=== PATIENT | male | born 1975 | race Hispanic/Latino ===

== ENCOUNTER → 2018-06-22 | Outpatient (CLI) | payer BC ==
--- NOTE | 2018-06-22 14:11 | Diagnostic Imaging Report ---
EXAMINATION: Scrotal ultrasound CLINICAL INDICATION: Lower abdominal pain, right testicular pain. COMPARISON: None.. TECHNIQUE: Grayscale and color Doppler evaluation of the scrotum was performed in transverse and longitudinal planes. FINDINGS: The right testicle measures 4.5 x 2.1 x 3.3 cm. There are no masses or calcifications.. The right epididymis measures 1.0 x 1.0 x 1.0 cm. No nodules or masses.. Trace right hydrocele. A right varicocele is identified There is normal arterial and venous flow to the right testicle, without evidence of torsion. The left testicle measures 3.9 x 2.1 x 3.7 cm. There are no masses or calcifications.. The left epididymis measures 0.7 x 0.8 x 0.8 cm. No nodules or masses.. Trace left hydrocele. No varicocele. There is normal arterial and venous flow to the left testicle without evidence of torsion. The scrotum has a normal appearance, without focal lesions. No skin thickening. Normal-sized, normal-appearing 2.3 x 0.6 x 1.2 cm right inguinal lymph node is identified, with normal fatty hilum. Impression: 1. Normal bilateral testicular size and echogenicity. Normal arterial venous flow, without evidence of torsion. No focal lesions. 2. Right varicocele. 3. Trace bilateral hydroceles. Signed by: Dr. Edilberto Gar M.D. on 06/22/2018 2:07 PM
== END ==
LOC: US 11:19
PROVIDERS: ATTEND Urology
DX: R10.30 Lower abdominal pain, unspecified (principal); N50.811 Right testicular pain; G89.29 Other chronic pain
CPT/HCPCS: 76870; 93976